=== PATIENT | male | born 1955 | race Caucasian/White ===

== ENCOUNTER 2016-04-20 19:43 | Emergency (ER) | payer SELFPAY ==
[~2016-04-20] VITALS: Ht 185.4 cm; Wt 83.0 kg
[2016-04-20 19:44] VITALS: BP 125/80; PULSE 94; RESP 15; TEMP 100.8; O2SAT 96
--- NOTE | 2016-04-20 21:28 | PD ---
HPI Chief Complaint: ENT Complaint Time Seen by Provider: 21:28 Travel History International Travel<30 days: No Contact w/Intl Traveler<30days: No Traveled to known affect area: No History of Present Illness HPI 60-year-old male presents to emergency department for evaluation of upper respiratory symptoms. Patient states that he has had a cough and cold for the last week or so. He has been handled pinnae well with [id number] medications. He states he developed sinus congestion and pressure and now has a fever. States he cannot breathe out of his nose. Reports facial tenderness. Cough is nonproductive. No nausea, vomiting, diarrhea. Patient has no other symptoms to report. PFSH Past Medical History Medical History: Denies Significant Hx Tetanus Vaccination: Unknown Influenza Vaccination: No Past Surgical History Surgical History: No Previous Surgery Social History Alcohol Use: No Tobacco Use: No Substance Use: No Allergies-Medications (Allergen,Severity, Reaction): Coded Allergies: No Known Allergies (Unverified , 04/20/16) Reported Meds & Prescriptions Reported Meds & Active Scripts Active Mometasone Nasal [place] 50 Mcg/Act [place] 2 [place] EACH NARE DAILY Augmentin (Amoxicillin-Clavulanate) 875-125 mg Tab 875 Mg PO BID 10 Days not for use in CrCl <30 ml/min. Review of Systems Except as stated in HPI: all other systems reviewed are Neg Physical Exam Narrative GENERAL: Well-nourished, well-developed male patient, ambulatory and in no acute distress SKIN: Warm and dry. HEAD: Normocephalic. Atraumatic. Tenderness elicited palpation over the maxillary sinuses. EYES: No scleral icterus. No injection or drainage. EOMI. PERRL ENT: Mucosa pink and moist. Pharynx erythema and no exudates. No uvular edema. No uvular, palatal, or tonsillar deviation. Airway patent. Nasal turbinates appear inflamed without nasal blood, purulent drainage or septal hematoma. NECK: Supple, trachea midline. No JVD or lymphadenopathy. CARDIOVASCULAR: Elevated rate and rhythm without murmurs, gallops, or rubs. RESPIRATORY: Breath sounds equal bilaterally. No accessory muscle use. GASTROINTESTINAL: Abdomen soft, non-tender, nondistended. MUSCULOSKELETAL: No cyanosis, or edema. BACK: Nontender without obvious deformity. No CVA tenderness. Data Data Last Documented VS Vital Signs Date Time Temp Pulse Resp B/P Pulse Ox O2 Delivery O2 Flow Rate FiO2 04/20/16 19:44 100.8 94 15 125/80 96 Room Air Orders Influenzae A/B Antigen (04/20/16 21:28) Chest, Single Ap (04/20/16 ) Ibuprofen (Motrin) (04/20/16 21:30) Group A Rapid Strep Screen (04/20/16 21:51) Strep Culture (Group A) (04/20/16 22:00) MDM Medical Decision Making Medical Screen Exam Complete: Yes Emergency Medical Condition: Yes Medical Record Reviewed: Yes Differential Diagnosis Influenza versus pharyngitis versus viral URI versus sinusitis versus acute bacterial rhinosinusitis Narrative Course 60-year-old male presents to the emergency department for evaluation. Patient appears without distress. He has tenderness elicited palpation of the maxillary sinuses with inflamed turbinates, and fever. Patient is given ibuprofen here. Influenza rapid strep screens are negative. I discussed the patient maintained physician who recommends starting him on antibiotics and to follow-up with primary care provider. She agrees to return immediately with any acute worsening symptoms. Diagnosis Primary Impression: Acute bacterial rhinosinusitis Referrals: Primary Care Physician Patient Instructions: General Instructions, Rhinosinusitis (ED) Additional Instructions: Humidified air may help to alleviate symptoms Normal saline nasal spray may also help to alleviate symptoms Euyw-hep-lqlidby antihistamine such as Benadryl or zyrtec. Take as directed on the package Tylenol or ibuprofen as directed on package as needed for fever Return immediately to the emergency department with any acute worsening of symptoms Med/Other Pt SpecificInfo: Prescription(s) given Scripts Mometasone Nasal [place] 50 Mcg/Act Spray2 [place] EACH NARE DAILY #1 BOTTLE Ref 0 Prov:Trina Leyva 04/20/16 Amoxicillin-Clavulanate (Augmentin)875-125 mg [id number] Mg PO BID 10 Days Ref 0 not for use in CrCl <30 ml/min. Prov:Trina Leyva 04/20/16 Disposition: 01 DISCHARGE HOME Condition: Stable Trina Leyva Apr 20, 2016 21:28
[2016-04-20] MEDS ORDERED: IBUPROFEN 800 MG TAB PO ONE (21:30)
--- NOTE | 2016-04-20 22:29 | RADRPT ---
EXAM DATE/TIME: 04/20/2016 19:49 [facility] COMPARISON: No previous studies available for comparison. INDICATIONS : Fever starting today MEDICAL HISTORY : None. SURGICAL HISTORY : None. ENCOUNTER: Initial ACUITY: 1 day PAIN SCORE: 0/10 LOCATION: Bilateral chest FINDINGS: A single view of the chest demonstrates the lungs to be symmetrically aerated without evidence of mas s, infiltrate or effusion. Minimal linear scarring or atelectasis left costophrenic angle. The cardi omediastinal contours are unremarkable except tortuous aorta. Osseous structures are intact. CONCLUSION: 1. Minimal left basilar scarring or atelectasis. Exam otherwise unremarkable. Qiunn Holt MD on April 20, 2016 at 22:27 Board Certified Radiologist. This report was verified electronically.
[2016-04-20] MEDS ORDERED: AUGM875T PO (22:36)
[2016-04-20] MEDS ORDERED: MOME1SPR2 EACH NARE (22:36)
== END 2016-04-20 22:54 | disposition home or self-care (01) ==
LOC: NEPB 19:43
DX: J01.90 Acute sinusitis, unspecified (principal); B96.89 Other specified bacterial agents as the cause of diseases classified elsewhere; R05 Cough; R50.9 Fever, unspecified
CPT/HCPCS: 71010; 87081; 87804; 87880; 99283